=== PATIENT | female | born 1950 | race Caucasian/White ===

== ENCOUNTER → 2016-06-06 | Outpatient (CLI) | payer MEDICARE, BC ==
[~2016-06-06] MED LIST: 00186-0370-20 IH; 00186-0372-20 IH; AMBIEN 10MG10 MG PO; ATIVAN 0.50.5 MG/TAB PO; CHOLESTIN PO; COLACE 100100 MG/CAP PO; DEMEROL 50M50 MG/TAB PO; DESYREL 50MG50 MG PO; DESYREL DIVIDO150 M1 PO; EPA FISH OIL1000 MG PO; FENTANYL 12MCG TOP; FENTANYL BC; FLEXERIL5 MG PO; LAMICTAL 25MG T25 MG PO; LEVOXYL0.075 MG PO; LIDODERM 5% PATC1 EA TP; MS CONTIN 115 MG/TAB PO; PAXIL 20MG20 MG PO; PHENERGAN 25 TA25 MG PO; PREMARIN 0.60.625 M1 PO; PROZAC 10MG10 MG PO; PROZAC 20MG20 MG PO; PROZAC60 MG PO; ROXICODONE 55 MG/TAB PO; SYNTHROID0.088 MG/T PO; VAGINAL CREAM; VALIUM 10MG10 MG/TAB PO; VALIUM 5MG T5 MG/TAB PO; VISTARIL 2525 MG/CAP PO; WELLBUTRIN XL150 MG PO; XOPENEX HF0.045 MG/A IH; ZOLOFT 50MG50 MG; ZOLOFT 50MG50 MG PO
== END ==
LOC: BHSO 14:35
DX: F41.1 Generalized anxiety disorder (principal)

== ENCOUNTER 2016-07-16 10:09 | Emergency (ER) | payer MEDICARE, BC ==
[2007-05-12 11:05] VITALS: BP 126/77
[~2016-07-16] VITALS: Ht 162.6 cm; Wt 50.0 kg
[2016-07-16 10:22] VITALS: BP 136/112; PULSE 100; TEMP 98
[2016-07-16 11:39] LABS: BASO % 0.3 % (0.0-2.0); EOS % 0.2 % (0-4.0); GRAN # 6.6 (1.4-6.5); GRAN % 74.8 % (42.2-75.2); HEMATOCRIT 39.2 % (37.0-47.0); HEMOGLOBIN 13.3 g/dl (12.5-16.0); LYMPH # 1.6 (1.2-3.4); LYMPH % 17.6 % (20.0-51.0); MEAN CELL VOLUME 83 fl (80.0-100.0); MEAN CORPUSCULAR HEMOGLOBIN 28 pg (27.0-31.0); MEAN CORPUSCULAR HGB CONC 34 g/dl (33.0-37.0); MEAN PLATELET VOLUME 9.8 fl (7.4-10.4); MONO # 0.6 (0.1-0.6); MONO % 6.2 % (1.7-9.3); PLATELET COUNT 303 K/mm3 (130-400); RED BLOOD COUNT 4.75 M/mm3 (4.10-5.30); REDCELL DISTRIBUTION WIDTH-CV 12.4 % (11.5-14.5); WHITE BLOOD COUNT 8.9 K/mm3 (4.8-10.8)
[2016-07-16 11:58] LABS: ADJUSTED CALCIUM 9.4 mg/dL (8.4-10.2); ALANINE AMINOTRANSFERASE 25 U/L (9-52); ALBUMIN 4.5 gm/dL (3.5-5.0); ALKALINE PHOSPHATASE 81 U/L (50-136); ANION GAP 13 mmol/L (7-16); BILIRUBIN,TOTAL 0.6 mg/dL (0.0-1.0); BLOOD UREA NITROGEN 11 mg/dL (7-17); CALCIUM 9.8 mg/dL (8.4-10.2); CARBON DIOXIDE 23 mmol/L (22-30); CHLORIDE 103 mmol/L (98-107); CREATININE, serum 0.76 mg/dL (0.52-1.25); GLUCOSE 117 mg/dL (74-106); POTASSIUM 3.4 mmol/L (3.4-5.0); SODIUM 139 mmol/L (137-145); TOTAL PROTEIN 7.4 gm/dL (6.4-8.2)
[2016-07-16 12:15] LABS: TROPONIN-I < 0.012 ng/mL (0.000-0.034)
[2016-07-16 13:36] LABS: PH 9 (5-8); SQUAMOUS EPITHELIAL None Seen /hpf; URINE APPEARANCE Clear; URINE BACTERIA Rare /hpf; URINE BILIRUBIN Negative (NEGATIVE); URINE BLOOD 1+ (NEGATIVE); URINE COLOR Straw; URINE GLUCOSE Negative (NEGATIVE); URINE KETONE Trace (NEGATIVE); URINE UROBILINOGEN Negative (NEGATIVE); URINE WBC 0-2 /hpf
[2016-07-16] MEDS ORDERED: ATIVAN 0.50.5 MG/TAB PO (14:10)
== END 2016-07-16 14:23 | disposition home or self-care (01) ==
LOC: COL.ER 10:09
PROVIDERS: Physician Assistant
DX: F41.9 Anxiety disorder, unspecified (principal); R06.02 Shortness of breath; R31.9 Hematuria, unspecified; F32.9 Major depressive disorder, single episode, unspecified

== ENCOUNTER → 2016-07-24 | Outpatient (CLI) | payer MEDICARE, BC | LOC: BHSO 15:06 | DX: F41.1 Generalized anxiety disorder (principal) ==

== ENCOUNTER → 2016-08-07 | Outpatient (CLI) | payer MEDICARE, BC | LOC: COL.PUL 07-26 08:00 | DX: R06.02 Shortness of breath (principal) ==

== ENCOUNTER → 2016-08-30 | Outpatient (CLI) | payer MEDICARE, BC | LOC: BHSO 15:00 | DX: F41.1 Generalized anxiety disorder (principal) ==

== ENCOUNTER → 2016-10-04 | Outpatient (CLI) | payer MEDICARE, BC | LOC: BHSO 14:08 | DX: F33.1 Major depressive disorder, recurrent, moderate (principal); F41.1 Generalized anxiety disorder ==

== ENCOUNTER → 2017-01-30 | Outpatient (CLI) | payer MEDICARE, BC | LOC: MC.RAD 13:34 | DX: Z12.31 Encounter for screening mammogram for malignant neoplasm of breast (principal); Z13.820 Encounter for screening for osteoporosis ==

== ENCOUNTER → 2018-05-29 | Outpatient (CLI) | payer MEDICARE, BC | LOC: BHSO 09:40 | DX: F41.1 Generalized anxiety disorder (principal) | CPT/HCPCS: G0463 ==

== ENCOUNTER → 2018-07-10 | Outpatient (CLI) | payer MEDICARE, BC | LOC: BHSO 12:54 | DX: F41.1 Generalized anxiety disorder (principal) | CPT/HCPCS: G0463 ==

== ENCOUNTER 2022-09-04 10:50 | Emergency (ER) | payer MEDICARE, BC ==
[~2022-09-04] VITALS: Ht 162.6 cm; Wt 45.0 kg
[2022-09-04 10:57] VITALS: BP 183/85; PULSE 100; TEMP 98.1
== END 2022-09-04 12:10 | disposition left against medical advice (07) ==
LOC: COL.ER 10:50
DX: M79.601 Pain in right arm (principal); F23 Brief psychotic disorder; Z87.39 Personal history of other diseases of the musculoskeletal system and connective tissue; Z20.822 Contact with and (suspected) exposure to COVID-19; Z28.310 Unvaccinated for COVID-19